=== PATIENT | male | born 1965 | race African-American/Black ===

== ENCOUNTER 2019-11-28 11:33 | Inpatient (IN) | payer OTHER ==
--- NOTE | 2019-11-28 11:52 | BHS.RME ---
Substance Use & Tx History - Substance Use History Alcohol Substance amount: 4 PINTS VODKA Frequency of use: Daily Substance route: Oral Date of Last Use: 11/28/19 Cocaine-Crack Substance amount: $70-80 Frequency of use: Daily Substance route: Smoking Date of Last Use: 11/26/19 Nicotine Substance amount: 1/2 PACK Frequency of use: Daily Substance route: Smoking Date of Last Use: 11/28/19 Physical/Psych/Mental Status - Behavior General Behavior: Increased activity (restlessness, agitation) Eye Contact: Normal - Cooperativeness Cooperativeness: Cooperative - Thinking Thought Processes: Tight, Logical, Goal Directed - Physical Health Problems Is patient presently having any pain?: No Does patient presently have any injuries (include location): No Does patient currently have a fever: No Is patient : No CIWA Nausea/Vomitin Muscle Tremors: 4-Moderate,w/Arms Extend Anxiety: 3 Agitation: 2 Paroxysmal Sweats: 5 Orientation: 0-Oriented Tacttile Disturbances: 0-None Auditory Disturbances: 0-None Visual Disturbances: 0-None Headache: 2-Mild CIWA-Ar Total Score: 19
[2019-11-28 14:41] VITALS: BMI 28.6
--- NOTE | 2019-11-28 15:33 | HP ---
CIWA Score Nausea/Vomitin Muscle Tremors: 4-Moderate,w/Arms Extend Anxiety: 3 Agitation: 2 Paroxysmal Sweats: 5 Orientation: 0-Oriented Tacttile Disturbances: 0-None Auditory Disturbances: 0-None Visual Disturbances: 0-None Headache: 2-Mild CIWA-Ar Total Score: 19 - Admission Criteria OASAS Guidelines: Admission for Medically Managed Detox: Requires at least one of the followin. CIWA greater than 12 2. Seizures within the past 24 hours 3. Delirium tremens within the past 24 hours 4. Hallucinations within the past 24 hours 5. Acute intervention needed for co occurring medical disorder 6. Acute intervention needed for co occurring psychiatric disorder 7. Severe withdrawal that cannot be handled at a lower level of care (continued vomiting, continued diarrhea, abnormal vital signs) requiring intravenous medication and/or fluids 8. Admitting History and Physical - Admission History of Present Illness: Patient presents to [facility] presenting for detox from alcohol PMH: HTN, was placed on amlodipine but not adherent PSH: Cholecystectomy 04/2019 PSYCH:None SOCIAL/DOMICILED: + Homesless-[address] Substance Use & Tx History - Substance Use History Alcohol Substance amount: 4 PINTS VODKA Frequency of use: Daily Substance route: Oral Date of Last Use: 11/28/19 First use: 11 yo Cocaine-Crack Substance amount: $70-80 Frequency of use: Daily Substance route: Smoking Date of Last Use: 11/26/19 First use: 27yo Nicotine Substance amount: 1/2 PACK Frequency of use: Daily Substance route: Smoking Date of Last Use: 11/28/19 First use: 11yo History Source: Patient Limitations to Obtaining History: No Limitations - Past Surgical History Past Surgical History: Yes: Cholecystectomy (Apr, 2019) - Smoking History Smoking history: Current every day smoker Have you smoked in the past 12 months: Yes Aproximately how many cigarettes per day: 10 - Alcohol/Substance Use Hx Alcohol Use: Yes Number of Drinks Daily: 4 (4 pints of vodka) Admission ROS [facility] - [facility] Allergies/Adverse Reactions: Allergies Allergy/AdvReac Type Severity Reaction Status Date / Time No Known Allergies Allergy Verified 07/17/19 19:27 Exam Limitations: No Limitations - Ebola screening Have you traveled outside of the country in the last 21 days: No Have you been sick,other than usual withdrawal symptoms: No Do you have a fever: No - Review of Systems Constitutional: No Symptoms Reported EENT: reports: No Symptoms Reported Respiratory: reports: No Symptoms reported Cardiac: reports: No Symptoms Reported GI: reports: No Symptoms Reported : reports: No Symptoms Reported Musculoskeletal: reports: Back Pain Integumentary: reports: No Symptoms Reported Neuro: reports: No Symptoms reported Endocrine: reports: No Symptoms Reported Hematology: reports: No Symptoms Reported Psychiatric: reports: Anxious Patient History - Patient Medical History Hx Asthma: No Hx Chronic Obstructive Pulmonary Disease (COPD): No Hx Cardiac Disorders: No Hx Hypertension: Yes Hx Seizures: No Hx Diabetes: No Hx Gastrointestinal Disorders: No Hx Genitourinary Disorders: No Hx Sexually Transmitted Disorders: No Hx Renal Disease (ESRD): No Hx Depression: No Hx Suicide Attempt: No Hx Schizophrenia: No - Patient Surgical History Past Surgical History: No Hx Cholecystectomy: Yes (removed in april 2019) Anesthesia Reaction: No - PPD History Previous Implant?: Yes Documented Results: Negative w/proof Implanted On Prior R Admission?: Yes Date: 07/19/19 Results: Negative - Smoking Cessation Smoking history: Current every day smoker Have you smoked in the past 12 months: Yes Aproximately how many cigarettes per day: 10 Cigars Per Day: 0 Hx Chewing Tobacco Use: No Initiated information on smoking cessation: Yes 'Breaking Loose' booklet given: 11/28/19 - Substances abused Crack Substance route: Smoking Frequency: 3-6 times per week Amount used: "$70-$80 worth" Age of first use: 27 Date of last use: 11/25/19 Alcohol Substance route: Oral Frequency: Daily Amount used: "4-5 pints a day" Age of first use: 11 Date of last use: 11/28/19 Admission Physical Exam BHS - Vital Signs Vital Signs: Vital Signs - 24 hr 11/28/19 14:34 Temperature 97.9 F Pulse Rate 93 H Respiratory 18 Rate Blood Pressure 127/82 - Physical General Appearance: Yes: Within Normal Limits, No Apparent Distress, Nourished, Appropriately Dressed, Other (Extremely tired and sleepy. Said he hasn't slept for 4 days now because he is homeless and don't have good space to sleep) HEENTM: Yes: Within Normal Limits, EOMI, Hearing grossly Normal, Normocephalic, Normal Voice, ELISEO Respiratory: Yes: Within Normal Limits, Chest Non-Tender, Lungs Clear, Normal Breath Sounds, No Respiratory Distress, No Accessory Muscle Use Neck: Yes: Within Normal Limits, No masses,lesions,Nodules Breast: Yes: Breast Exam Deferred Cardiology: Yes: Within Normal Limits, Regular Rhythm, Regular Rate, S1, S2 Abdominal: Yes: Within Normal Limits, Normal Bowel Sounds, Non Tender, Flat, Soft Genitourinary: Yes: Within Normal Limits Back: Yes: Within Normal Limits, Normal Inspection Musculoskeletal: Yes: Within Normal Limits Extremities: Yes: Within Normal Limits, Normal Capillary Refill, Normal Inspection, Normal Range of Motion, Non-Tender Neurological: Yes: Within Normal Limits, Fully Oriented, Alert Integumentary: Yes: Within Normal Limits, Normal Color - Diagnostic (1) Hypertension Current Visit: Yes Status: Chronic (2) Homeless Current Visit: Yes Status: Chronic (3) Cocaine abuse Current Visit: Yes Status: Acute (4) Alcohol abuse, episodic drinking behavior Current Visit: Yes Status: Acute (5) Nicotine dependence Current Visit: Yes Status: Acute Qualifiers: Nicotine product type: cigarettes Cleared for Admission [facility] - Detox or Rehab [facility] Level of Care: Medically Managed Screened but not Admitted - Documentation of Visit Screened but not Admitted: No Breathalyzer - Breathalyzer Breathalyzer: 0 Urine Drug Screen - Test Device Lot number: [id number] Expiration date: 01/07/21 - Control Is test valid?: Yes - Results Drug screen NEGATIVE: No Urine drug screen results: BRADLY-Cocaine, FEN-Fentanyl, BZO-Benzodiazepines Inpatient Rehab Admission - Rehab Decision to Admit Inpatient rehab admission?: No
[2019-11-28] MEDS ORDERED: chlordiazePOXIDE HCL 25 MG CAPSULE PO PRN (15:56)
[2019-11-28] MEDS ORDERED: MAGNESIUM HYDROX 2400MG/30ML ORAL SUSPENSION 30 ML CUP PO PRN (15:56)
[2019-11-28] MEDS ORDERED: MENTHOL/PHENOL 1 EACH UD MM PRN (15:56)
[2019-11-28] MEDS ORDERED: MAG HYDROX/AL HYDROX/SIMETH 30 ML UNIT-DOSE CUP PO PRN (15:56)
[2019-11-28] MEDS ORDERED: BISMUTH SUBSALICYLATE 524 MG/30 ML UD PO PRN (15:56)
[2019-11-28] MEDS ORDERED: METHOCARBAMOL 500 MG TABLET PO PRN (15:56)
[2019-11-28] MEDS ORDERED: ACETAMINOPHEN 325 MG TABLET (FP) PO PRN ×2 (15:56)
[2019-11-28] MEDS ORDERED: NICOTINE POLACRILEX 2 MG GUM BUC PRN (15:56)
[2019-11-28] MEDS ORDERED: IBUPROFEN 400 MG TABLET (FP) PO PRN (15:56)
[2019-11-28] MEDS ORDERED: MAGNESIUM CITRATE 300 ML BOTTLE PO PRN (15:56)
[2019-11-28] MEDS: ONDANSETRON *ODT* 4 MG TABLET SL SCH (18:02)
[2019-11-28] MEDS: chlordiazePOXIDE HCL 25 MG CAPSULE PO SCH ×2 (18:02→23:01)
[2019-11-28] MEDS: hydrOXYzine PAMOATE 25 MG CAPSULE (FP) PO SCH ×2 (18:02→23:01)
[2019-11-28] MEDS: NICOTINE 14 MG/24 HOURS TOPICAL PATCH TD SCH (18:02)
[2019-11-28] MEDS: PRENATAL VITAMINS W/ FOLIC ACID TABLET (FP) PO SCH (18:02)
[2019-11-28] MEDS: THIAMINE HCL 100 MG TABLET (FP) PO SCH (23:01)
[2019-11-28] MEDS: MELATONIN 5 MG TABLETS PO SCH (23:11)
[2019-11-29] MEDS: ONDANSETRON *ODT* 4 MG TABLET SL SCH ×4 (01:24→23:15)
[2019-11-29] MEDS: hydrOXYzine PAMOATE 25 MG CAPSULE (FP) PO SCH ×3 (06:32→14:55)
[2019-11-29] MEDS: chlordiazePOXIDE HCL 25 MG CAPSULE PO SCH ×4 (06:32→23:13)
--- NOTE | 2019-11-29 08:17 | PN ---
Teaching Attending Note Name of Resident: Yarelis Medrano ATTENDING PHYSICIAN STATEMENT I saw and evaluated the patient. I reviewed the resident's note and discussed the case with the resident. I agree with the resident's findings and plan as documented. SUBJECTIVE: I agree with resident's subjective findings OBJECTIVE: I agree with resident's objective findings. ASSESSMENT AND PLAN: Agree with plan for alcohol detox for this patient as per resident's orders.
[2019-11-29 09:55] LABS: HEMATOCRIT 37.4 % (35.4-49); MCH 26.8 pg (25.7-33.7); MCHC 32.1 g/dl (32.0-35.9); MEAN CELL VOLUME 83.3 fl (80-96); MEAN PLT VOLUME 10.6 fl (7.5-11.1); PLATELET COUNT 154 K/MM3 (134-434); RBC 4.49 M/mm3 (4.00-5.60); RDW 19.6 % (11.9-15.9); WHITE BLOOD COUNT 8.5 K/mm3 (4.0-10.0)
[2019-11-29 10:03] LABS: ALBUMIN 3.1 g/dl (3.4-5.0); BILIRUBIN,TOTAL 0.6 mg/dL (0.2-1); BLOOD UREA NITROGEN 17.3 mg/dL (7-18); CALCIUM 8.1 mg/dL (8.5-10.1); CREATININE 1.1 mg/dL (0.55-1.3); POTASSIUM 3.9 mmol/L (3.5-5.1)
[2019-11-29] MEDS: amLODIPine BESYLATE 5 MG TABLET (FP) PO SCH (11:20)
[2019-11-29] MEDS: PRENATAL VITAMINS W/ FOLIC ACID TABLET (FP) PO SCH (11:20)
[2019-11-29] MEDS: NICOTINE 14 MG/24 HOURS TOPICAL PATCH TD SCH (11:22)
--- NOTE | 2019-11-29 12:14 | PN ---
S CIWA - CIWA Score Nausea/Vomitin Muscle Tremors: 2 Anxiety: 2 Agitation: 2 Paroxysmal Sweats: No Perspiration Orientation: 0-Oriented Tacttile Disturbances: 1-Very Mild Itch/Numbness Auditory Disturbances: 0-None Visual Disturbances: 0-None Headache: 2-Mild CIWA-Ar Total Score: 11 S Progress Note (SOAP) Subjective: alert,irritable,anxious,interrupted sleep,tremor,pain in the body and back Objective: 11/29/19 12:13 Vital Signs Temperature 97.5 F L 11/29/19 08:49 Pulse Rate 81 11/29/19 08:49 Respiratory Rate 17 11/29/19 08:49 Blood Pressure 116/68 11/29/19 08:49 O2 Sat by Pulse Oximetry (%) 95 11/29/19 05:19 11/29/19 12:13 Laboratory Last Values WBC 8.5 K/mm3 (4.0-10.0) 11/29/19 07:45 RBC 4.49 M/mm3 (4.00-5.60) 11/29/19 07:45 Hgb 12.0 GM/dL (11.7-16.9) 11/29/19 07:45 Hct 37.4 % (35.4-49) 11/29/19 07:45 MCV 83.3 fl (80-96) 11/29/19 07:45 MCH 26.8 pg (25.7-33.7) 11/29/19 07:45 MCHC 32.1 g/dl (32.0-35.9) 11/29/19 07:45 RDW 19.6 % (11.9-15.9) H 11/29/19 07:45 Plt Count 154 K/MM3 (134-434) D 11/29/19 07:45 MPV 10.6 fl (7.5-11.1) 11/29/19 07:45 Sodium 139 mmol/L (136-145) 11/29/19 07:45 Potassium 3.9 mmol/L (3.5-5.1) 11/29/19 07:45 Chloride 106 mmol/L (98-107) 11/29/19 07:45 Carbon Dioxide 25 mmol/L (21-32) 11/29/19 07:45 Anion Gap 8 MMOL/L (8-16) 11/29/19 07:45 BUN 17.3 mg/dL (7-18) 11/29/19 07:45 Creatinine 1.1 mg/dL (0.55-1.3) 11/29/19 07:45 Est GFR (CKD-EPI)AfAm 87.74 11/29/19 07:45 Est GFR (CKD-EPI)NonAf 75.70 11/29/19 07:45 Random Glucose 105 mg/dL (74-106) 11/29/19 07:45 Calcium 8.1 mg/dL (8.5-10.1) L 11/29/19 07:45 Total Bilirubin 0.6 mg/dL (0.2-1) 11/29/19 07:45 AST 22 U/L (15-37) 11/29/19 07:45 ALT 30 U/L (13-61) 11/29/19 07:45 Alkaline Phosphatase 118 U/L (45-117) H 11/29/19 07:45 Total Protein 7.0 g/dl (6.4-8.2) 11/29/19 07:45 Albumin 3.1 g/dl (3.4-5.0) L 11/29/19 07:45 Syphilis Serology Non-reactive (NONREACTIVE) 11/29/19 07:45 HIV Ag/Ab Combo Qual Negative (NEGATIVE) 11/29/19 07:45 Assessment: 11/29/19 12:14 withdrawal symptom Plan: continue detox librium regimen,encourage oral fluid,close monitoring
--- NOTE | 2019-11-29 12:57 | EKG ---
Test Reason : Blood Pressure : / mmHG Vent. Rate : 077 BPM Atrial Rate : 077 BPM P-R Int : 168 ms QRS Dur : 106 ms QT Int : 394 ms P-R-T Axes : 053 024 040 degrees QTc Int : 445 ms NORMAL SINUS RHYTHM NORMAL ECG WHEN COMPARED WITH ECG OF 17-JUL-2019 19:16, NO SIGNIFICANT CHANGE WAS FOUND Confirmed by MD LOPEZ PENG ([id number]) on 11/29/2019 12:57:28 PM Referred By: Confirmed By:CATARINO LOPEZ MD
[2019-11-29] MEDS ORDERED: hydrOXYzine PAMOATE 25 MG CAPSULE (FP) PO PRN (15:43)
[2019-11-29] MEDS: THIAMINE HCL 100 MG TABLET (FP) PO SCH (23:13)
[2019-11-29] MEDS: MELATONIN 5 MG TABLETS PO SCH (23:13)
[2019-11-30] MEDS: chlordiazePOXIDE HCL 25 MG CAPSULE PO SCH ×4 (06:52→23:19)
[2019-11-30] MEDS: ONDANSETRON *ODT* 4 MG TABLET SL SCH ×3 (07:24→23:20)
--- NOTE | 2019-11-30 10:07 | PN ---
[facility] CIWA - CIWA Score Nausea/Vomitin-Mild Nausea/No Vomiting Muscle Tremors: 2 Anxiety: 2 Agitation: 2 Paroxysmal Sweats: No Perspiration Orientation: 0-Oriented Tacttile Disturbances: 1-Very Mild Itch/Numbness Auditory Disturbances: 0-None Visual Disturbances: 0-None Headache: 1-Very Mild CIWA-Ar Total Score: 9 S Progress Note (SOAP) Subjective: alert,irritable,anxious,interrupted sleep,tremor Objective: 11/30/19 10:06 Vital Signs Temperature 97.8 F 11/30/19 05:24 Pulse Rate 73 11/30/19 05:24 Respiratory Rate 16 11/30/19 05:24 Blood Pressure 128/82 11/30/19 05:24 O2 Sat by Pulse Oximetry (%) 95 11/30/19 05:24 Laboratory Last Values WBC 8.5 K/mm3 (4.0-10.0) 11/29/19 07:45 RBC 4.49 M/mm3 (4.00-5.60) 11/29/19 07:45 Hgb 12.0 GM/dL (11.7-16.9) 11/29/19 07:45 Hct 37.4 % (35.4-49) 11/29/19 07:45 MCV 83.3 fl (80-96) 11/29/19 07:45 MCH 26.8 pg (25.7-33.7) 11/29/19 07:45 MCHC 32.1 g/dl (32.0-35.9) 11/29/19 07:45 RDW 19.6 % (11.9-15.9) H 11/29/19 07:45 Plt Count 154 K/MM3 (134-434) D 11/29/19 07:45 MPV 10.6 fl (7.5-11.1) 11/29/19 07:45 Sodium 139 mmol/L (136-145) 11/29/19 07:45 Potassium 3.9 mmol/L (3.5-5.1) 11/29/19 07:45 Chloride 106 mmol/L (98-107) 11/29/19 07:45 Carbon Dioxide 25 mmol/L (21-32) 11/29/19 07:45 Anion Gap 8 MMOL/L (8-16) 11/29/19 07:45 BUN 17.3 mg/dL (7-18) 11/29/19 07:45 Creatinine 1.1 mg/dL (0.55-1.3) 11/29/19 07:45 Est GFR (CKD-EPI)AfAm 87.74 11/29/19 07:45 Est GFR (CKD-EPI)NonAf 75.70 11/29/19 07:45 Random Glucose 105 mg/dL (74-106) 11/29/19 07:45 Calcium 8.1 mg/dL (8.5-10.1) L 11/29/19 07:45 Total Bilirubin 0.6 mg/dL (0.2-1) 11/29/19 07:45 AST 22 U/L (15-37) 11/29/19 07:45 ALT 30 U/L (13-61) 11/29/19 07:45 Alkaline Phosphatase 118 U/L (45-117) H 11/29/19 07:45 Total Protein 7.0 g/dl (6.4-8.2) 11/29/19 07:45 Albumin 3.1 g/dl (3.4-5.0) L 11/29/19 07:45 Syphilis Serology Non-reactive (NONREACTIVE) 11/29/19 07:45 COVID-19 ([facility]) Not detected (Not Detected) 11/28/19 08:30 HIV Ag/Ab Combo Qual Negative (NEGATIVE) 11/29/19 07:45 Assessment: 11/30/19 10:06 withdrawal symptom Plan: continue detox librium regimen,encourage oral fluid
[2019-11-30] MEDS: amLODIPine BESYLATE 5 MG TABLET (FP) PO SCH (10:59)
[2019-11-30] MEDS: NICOTINE 14 MG/24 HOURS TOPICAL PATCH TD SCH (10:59)
[2019-11-30] MEDS: PRENATAL VITAMINS W/ FOLIC ACID TABLET (FP) PO SCH (10:59)
[2019-11-30] MEDS: MELATONIN 5 MG TABLETS PO SCH (23:19)
[2019-11-30] MEDS: THIAMINE HCL 100 MG TABLET (FP) PO SCH (23:19)
[2019-12-01] MEDS ORDERED: chlordiazePOXIDE HCL 10 MG CAPSULE PO PRN
[2019-12-01] MEDS: chlordiazePOXIDE HCL 10 MG CAPSULE PO SCH ×3 (06:52→17:45)
[2019-12-01] MEDS: ONDANSETRON *ODT* 4 MG TABLET SL SCH ×2 (07:04→17:45)
--- NOTE | 2019-12-01 10:34 | PN ---
[facility] CIWA - CIWA Score Nausea/Vomitin-No Nausea/No Vomiting Muscle Tremors: 1-None Visible, but [place] Anxiety: 2 Agitation: 2 Paroxysmal Sweats: No Perspiration Orientation: 0-Oriented Tacttile Disturbances: 1-Very Mild Itch/Numbness Auditory Disturbances: 0-None Visual Disturbances: 0-None Headache: 1-Very Mild CIWA-Ar Total Score: 7 BHS Progress Note (SOAP) Subjective: alert,irritable,anxious,interrupted sleep Objective: 12/01/19 10:33 Vital Signs Temperature 97.1 F L 11/30/19 20:38 Pulse Rate 72 11/30/19 20:38 Respiratory Rate 18 11/30/19 20:38 Blood Pressure 113/83 11/30/19 20:38 O2 Sat by Pulse Oximetry (%) 98 11/30/19 22:21 Assessment: 12/01/19 10:34 withdrawal symptom Plan: continue detox librium regimen
[2019-12-01] MEDS: NICOTINE 14 MG/24 HOURS TOPICAL PATCH TD SCH (11:57)
[2019-12-01] MEDS: amLODIPine BESYLATE 5 MG TABLET (FP) PO SCH (11:57)
[2019-12-01] MEDS: PRENATAL VITAMINS W/ FOLIC ACID TABLET (FP) PO SCH (11:57)
[2019-12-01 17:27] VITALS: BP 146/78; PULSE 68; TEMP 97.3
--- NOTE | 2019-12-01 18:31 | DS ---
[facility] Detox Discharge Summary Admission Date: 11/28/19 Discharge Date: 12/01/19 - History Present History: Alcohol Dependence, Cocaine Dependence Additional Comments: Pt seen and examined, alert and oriented x3. In no acute respiratory distress.Ambulatory without assistance, full ROM. Wants to leave because he has stuff to do before going to rehab on Wednesday. Pertinent Past History: History of Hypertension, S/P Cholecystectomy (2019), alcohol, Crack/Cocaine and Nicotine use disorder. - Physical Exam Results Vital Signs: Vital Signs Temperature 97.3 F L 12/01/19 17:26 Pulse Rate 68 12/01/19 17:26 Respiratory Rate 18 12/01/19 17:26 Blood Pressure 146/78 12/01/19 17:26 O2 Sat by Pulse Oximetry (%) 100 12/01/19 14:20 Vital Signs 12/01/19 12/01/19 14:20 17:26 Temperature 98.2 F 97.3 F L Pulse Rate 73 68 Respiratory 17 18 Rate Blood Pressure 128/89 146/78 O2 Sat by Pulse 100 Oximetry (%) Laboratory Last Values WBC 8.5 K/mm3 (4.0-10.0) 11/29/19 07:45 RBC 4.49 M/mm3 (4.00-5.60) 11/29/19 07:45 Hgb 12.0 GM/dL (11.7-16.9) 11/29/19 07:45 Hct 37.4 % (35.4-49) 11/29/19 07:45 MCV 83.3 fl (80-96) 11/29/19 07:45 MCH 26.8 pg (25.7-33.7) 11/29/19 07:45 MCHC 32.1 g/dl (32.0-35.9) 11/29/19 07:45 RDW 19.6 % (11.9-15.9) H 11/29/19 07:45 Plt Count 154 K/MM3 (134-434) D 11/29/19 07:45 MPV 10.6 fl (7.5-11.1) 11/29/19 07:45 Sodium 139 mmol/L (136-145) 11/29/19 07:45 Potassium 3.9 mmol/L (3.5-5.1) 11/29/19 07:45 Chloride 106 mmol/L (98-107) 11/29/19 07:45 Carbon Dioxide 25 mmol/L (21-32) 11/29/19 07:45 Anion Gap 8 MMOL/L (8-16) 11/29/19 07:45 BUN 17.3 mg/dL (7-18) 11/29/19 07:45 Creatinine 1.1 mg/dL (0.55-1.3) 11/29/19 07:45 Est GFR (CKD-EPI)AfAm 87.74 11/29/19 07:45 Est GFR (CKD-EPI)NonAf 75.70 11/29/19 07:45 Random Glucose 105 mg/dL (74-106) 11/29/19 07:45 Calcium 8.1 mg/dL (8.5-10.1) L 11/29/19 07:45 Total Bilirubin 0.6 mg/dL (0.2-1) 11/29/19 07:45 AST 22 U/L (15-37) 11/29/19 07:45 ALT 30 U/L (13-61) 11/29/19 07:45 Alkaline Phosphatase 118 U/L (45-117) H 11/29/19 07:45 Total Protein 7.0 g/dl (6.4-8.2) 11/29/19 07:45 Albumin 3.1 g/dl (3.4-5.0) L 11/29/19 07:45 Syphilis Serology Non-reactive (NONREACTIVE) 11/29/19 07:45 COVID-19 ([facility]) Not detected (Not Detected) 11/28/19 08:30 HIV Ag/Ab Combo Qual Negative (NEGATIVE) 11/29/19 07:45 Labs reviewed. Pertinent Admission Physical Exam Findings: Withdrawal symptoms. - Medication Discharge Medications: Ambulatory Orders Amlodipine Besylate [Norvasc -] 5 mg PO DAILY 11/28/19 - Diagnosis (1) Alcohol abuse, episodic drinking behavior Current Visit: Yes Status: Acute (2) Cocaine abuse Current Visit: Yes Status: Chronic (3) Nicotine dependence Current Visit: Yes Status: Chronic Qualifiers: Nicotine product type: cigarettes (4) Homeless Current Visit: Yes Status: Chronic (5) Hypertension Current Visit: Yes Status: Chronic - AMA Did Patient Leave Against Medical Advice: Yes
[2019-12-02] MEDS ORDERED: chlordiazePOXIDE HCL 10 MG CAPSULE PO SCH (05:00)
[2019-12-03] MEDS ORDERED: chlordiazePOXIDE HCL 10 MG CAPSULE PO ONE (05:00)
== END 2019-12-01 17:45 | disposition left against medical advice (07) | DRG 770 ==
LOC: YASAS 11:33 → Y6N 15:58
PROVIDERS: ADMIT Allergy & Immunology; ATTEND Allergy & Immunology
PROC: HZ2ZZZZ Detoxification Services for Substance Abuse Treatment (ICD-10-PCS; principal; 2019-11-28)
DX: F10.230 Alcohol dependence with withdrawal, uncomplicated (principal); F14.20 Cocaine dependence, uncomplicated; F17.210 Nicotine dependence, cigarettes, uncomplicated; I10 Essential (primary) hypertension; Z90.49 Acquired absence of other specified parts of digestive tract; Z91.14 Patient's other noncompliance with medication regimen; Z59.0 Homelessness
CPT/HCPCS: 36415; 80053; 85027; 86780; 87389; 93005; 93010; Q0162; U0003

== ENCOUNTER 2020-06-26 14:28 | Inpatient (IN) | payer OTHER ==
[2020-06-26 16:27] VITALS: BMI 28.9
[2020-06-26] MEDS ORDERED: MAGNESIUM HYDROX 2400MG/30ML ORAL SUSPENSION 30 ML CUP PO PRN (16:44)
[2020-06-26] MEDS ORDERED: MENTHOL/PHENOL 1 EACH UD MM PRN (16:44)
[2020-06-26] MEDS ORDERED: ACETAMINOPHEN 325 MG TABLET (FP) PO PRN ×2 (16:44)
[2020-06-26] MEDS ORDERED: ONDANSETRON *ODT* 4 MG TABLET SL PRN (16:44)
[2020-06-26] MEDS ORDERED: IBUPROFEN 400 MG TABLET (FP) PO PRN (16:44)
[2020-06-26] MEDS ORDERED: NICOTINE POLACRILEX 2 MG GUM BUC PRN (16:44)
[2020-06-26] MEDS ORDERED: MAGNESIUM CITRATE 300 ML BOTTLE PO PRN (16:44)
[2020-06-26] MEDS ORDERED: chlordiazePOXIDE HCL 25 MG CAPSULE PO PRN (16:44)
[2020-06-26] MEDS ORDERED: METHOCARBAMOL 500 MG TABLET PO PRN (16:44)
[2020-06-26] MEDS ORDERED: BISMUTH SUBSALICYLATE 524 MG/30 ML UD PO PRN (16:44)
[2020-06-26] MEDS: MAG HYDROX/AL HYDROX/SIMETH 30 ML UNIT-DOSE CUP PO PRN (18:55)
[2020-06-26] MEDS: chlordiazePOXIDE HCL 25 MG CAPSULE PO SCH (18:57)
[2020-06-26] MEDS: hydrOXYzine PAMOATE 25 MG CAPSULE (FP) PO SCH ×2 (18:57→23:57)
[2020-06-26] MEDS: THIAMINE HCL 100 MG TABLET (FP) PO SCH (23:57)
[2020-06-26] MEDS: MELATONIN 5 MG TABLETS PO SCH (23:57)
[2020-06-27] MEDS: chlordiazePOXIDE HCL 25 MG CAPSULE PO SCH ×5 (00:11→22:31)
[2020-06-27] MEDS: hydrOXYzine PAMOATE 25 MG CAPSULE (FP) PO SCH ×5 (05:29→22:31)
[2020-06-27 09:48] LABS: POTASSIUM 4.4 mmol/L (3.5-5.1)
[2020-06-27 09:50] LABS: HEMATOCRIT 44.3 % (35.4-49); HEMOGLOBIN 14.8 GM/dL (11.7-16.9); MCH 29.3 pg (25.7-33.7); MCHC 33.4 g/dl (32.0-35.9); MEAN CELL VOLUME 87.7 fl (80-96); MEAN PLT VOLUME 10.2 fl (7.5-11.1); PLATELET COUNT 257 K/MM3 (134-434); RBC 5.05 M/mm3 (4.00-5.60); RDW 16.6 % (11.9-15.9); WHITE BLOOD COUNT 9.5 K/mm3 (4.0-10.0)
[2020-06-27] MEDS: PRENATAL VITAMINS W/ FOLIC ACID TABLET (FP) PO SCH (10:08)
[2020-06-27] MEDS: amLODIPine BESYLATE 5 MG TABLET (FP) PO SCH (10:08)
[2020-06-27 10:31] LABS: ALBUMIN 3.7 g/dl (3.4-5.0); BLOOD UREA NITROGEN 14.5 mg/dL (7-18); CALCIUM 9.3 mg/dL (8.5-10.1)
[2020-06-27 10:36] LABS: BILIRUBIN,TOTAL 0.5 mg/dL (0.2-1); CREATININE 1.1 mg/dL (0.55-1.3); TOT PROT 7.9 g/dl (6.4-8.2)
[2020-06-27] MEDS: THIAMINE HCL 100 MG TABLET (FP) PO SCH (22:30)
[2020-06-27] MEDS: MELATONIN 5 MG TABLETS PO SCH (22:30)
[2020-06-27] MEDS: MAG HYDROX/AL HYDROX/SIMETH 30 ML UNIT-DOSE CUP PO PRN (22:31)
[2020-06-28] MEDS: hydrOXYzine PAMOATE 25 MG CAPSULE (FP) PO SCH ×5 (05:42→23:56)
[2020-06-28] MEDS: chlordiazePOXIDE HCL 25 MG CAPSULE PO SCH ×4 (05:42→23:57)
[2020-06-28] MEDS: MAG HYDROX/AL HYDROX/SIMETH 30 ML UNIT-DOSE CUP PO PRN (05:44)
[2020-06-28] MEDS: amLODIPine BESYLATE 5 MG TABLET (FP) PO SCH (10:30)
[2020-06-28] MEDS: PRENATAL VITAMINS W/ FOLIC ACID TABLET (FP) PO SCH (10:30)
[2020-06-28] MEDS: MELATONIN 5 MG TABLETS PO SCH (23:56)
[2020-06-28] MEDS: THIAMINE HCL 100 MG TABLET (FP) PO SCH (23:57)
[2020-06-29] MEDS ORDERED: chlordiazePOXIDE HCL 10 MG CAPSULE PO PRN
[2020-06-29] MEDS ORDERED: chlordiazePOXIDE HCL 10 MG CAPSULE PO SCH (05:00)
[2020-06-29] MEDS: hydrOXYzine PAMOATE 25 MG CAPSULE (FP) PO SCH (05:52)
[2020-06-29 07:34] VITALS: BP 108/73; PULSE 62; TEMP 98
[2020-06-30] MEDS ORDERED: chlordiazePOXIDE HCL 10 MG CAPSULE PO SCH (05:00)
[2020-07-01] MEDS ORDERED: chlordiazePOXIDE HCL 10 MG CAPSULE PO ONE (05:00)
== END 2020-06-29 07:46 | disposition left against medical advice (07) | DRG 770 ==
LOC: YASAS 14:28 → Y6N 17:10
PROVIDERS: ADMIT Allergy & Immunology; ATTEND Allergy & Immunology
PROC: HZ2ZZZZ Detoxification Services for Substance Abuse Treatment (ICD-10-PCS; principal; 2020-06-26)
DX: F10.230 Alcohol dependence with withdrawal, uncomplicated (principal); F14.10 Cocaine abuse, uncomplicated; F17.210 Nicotine dependence, cigarettes, uncomplicated; I10 Essential (primary) hypertension; R73.9 Hyperglycemia, unspecified; Z90.49 Acquired absence of other specified parts of digestive tract
CPT/HCPCS: 36415; 80053; 85027; 86780; C9803; U0003

== ENCOUNTER 2022-01-09 15:11 | Inpatient (IN) | payer OTHER ==
[2022-01-09 16:23] VITALS: BMI 31.0
[2022-01-09] MEDS ORDERED: ONDANSETRON *ODT* 4 MG TABLET SL PRN (16:50)
[2022-01-09] MEDS ORDERED: MAG HYDROX/AL HYDROX/SIMETH 30 ML UNIT-DOSE CUP PO PRN (16:50)
[2022-01-09] MEDS ORDERED: BENZOCAINE/MENTHOL (CHLORASEPTIC ) LOZENGE MM PRN (16:50)
[2022-01-09] MEDS ORDERED: MAGNESIUM CITRATE 300 ML BOTTLE PO PRN (16:50)
[2022-01-09] MEDS ORDERED: chlordiazePOXIDE HCL 25 MG CAPSULE PO PRN (16:50)
[2022-01-09] MEDS ORDERED: LOPERAMIDE HCL 2 MG CAPSULE PO PRN (16:50)
[2022-01-09] MEDS ORDERED: BISMUTH SUBSALICYLATE 524 MG/30 ML PO PRN (16:50)
[2022-01-09] MEDS ORDERED: DICYCLOMINE HCL 10 MG CAPSULE PO PRN (16:50)
[2022-01-09] MEDS ORDERED: IBUPROFEN 400 MG TABLET (FP) PO PRN (16:50)
[2022-01-09] MEDS ORDERED: ACETAMINOPHEN 325 MG TABLET (FP) PO PRN ×2 (16:50)
[2022-01-09] MEDS ORDERED: METHOCARBAMOL 500 MG TABLET PO PRN (16:50)
[2022-01-09] MEDS ORDERED: NICOTINE 10 MG CARTRIDGE (INHALER) IH PRN (16:50)
[2022-01-09] MEDS ORDERED: MAGNESIUM HYDROX 2400MG/30ML ORAL SUSPENSION 30 ML CUP PO PRN (16:50)
[2022-01-09] MEDS ORDERED: IBUPROFEN 600 MG TABLET (FP) PO PRN (16:50)
[2022-01-09] MEDS: hydrOXYzine PAMOATE 25 MG CAPSULE (FP) PO SCH ×2 (18:27→22:26)
[2022-01-09] MEDS: chlordiazePOXIDE HCL 25 MG CAPSULE PO SCH ×2 (18:27→22:26)
[2022-01-09] MEDS: THIAMINE HCL 100 MG TABLET (FP) PO SCH (22:26)
[2022-01-09] MEDS: MELATONIN 5 MG TABLETS PO SCH (22:26)
[2022-01-10] MEDS: chlordiazePOXIDE HCL 25 MG CAPSULE PO SCH ×4 (06:38→22:53)
[2022-01-10] MEDS: hydrOXYzine PAMOATE 25 MG CAPSULE (FP) PO SCH ×5 (06:38→22:53)
[2022-01-10] MEDS: PRENATAL VITAMINS W/ FOLIC ACID TABLET (FP) PO SCH (10:38)
[2022-01-10] MEDS: NICOTINE 7 MG/24 HOURS TOPICAL PATCH TD SCH (10:40)
[2022-01-10 15:45] LABS: HEMATOCRIT 43.7 % (35.4-49); HEMOGLOBIN 14.2 GM/dL (11.7-16.9); MCH 28.3 pg (25.7-33.7); MCHC 32.6 g/dl (32.0-35.9); MEAN CELL VOLUME 86.9 fl (80-96); MEAN PLT VOLUME 10.6 fl (7.5-11.1); PLATELET COUNT 202 10^3/uL (134-434); RBC 5.03 M/mm3 (4.00-5.60); RDW 15.8 % (11.9-15.9); WHITE BLOOD COUNT 5.8 K/mm3 (4.0-10.0)
[2022-01-10 15:46] LABS: CALCIUM 8.6 mg/dL (8.5-10.1)
[2022-01-10 15:47] LABS: ALBUMIN 3.2 g/dl (3.4-5.0); BLOOD UREA NITROGEN 12.5 mg/dL (7-18)
[2022-01-10 15:50] LABS: CREATININE 0.9 mg/dL (0.55-1.3)
[2022-01-10 15:51] LABS: BILIRUBIN,TOTAL 0.6 mg/dL (0.2-1); TOT PROT 6.9 g/dl (6.4-8.2)
[2022-01-10] MEDS: MELATONIN 5 MG TABLETS PO SCH (22:53)
[2022-01-10] MEDS: THIAMINE HCL 100 MG TABLET (FP) PO SCH (22:53)
[2022-01-11] MEDS: hydrOXYzine PAMOATE 25 MG CAPSULE (FP) PO SCH ×5 (06:32→22:55)
[2022-01-11] MEDS: chlordiazePOXIDE HCL 25 MG CAPSULE PO SCH ×4 (06:32→22:55)
[2022-01-11] MEDS: PRENATAL VITAMINS W/ FOLIC ACID TABLET (FP) PO SCH (10:24)
[2022-01-11] MEDS: NICOTINE 7 MG/24 HOURS TOPICAL PATCH TD SCH (10:26)
[2022-01-11] MEDS: MELATONIN 5 MG TABLETS PO SCH (22:55)
[2022-01-11] MEDS: THIAMINE HCL 100 MG TABLET (FP) PO SCH (22:55)
[2022-01-12] MEDS ORDERED: chlordiazePOXIDE HCL 10 MG CAPSULE PO PRN
[2022-01-12] MEDS: chlordiazePOXIDE HCL 10 MG CAPSULE PO SCH ×4 (06:12→22:52)
[2022-01-12] MEDS: hydrOXYzine PAMOATE 25 MG CAPSULE (FP) PO SCH ×5 (06:13→22:52)
[2022-01-12] MEDS: PRENATAL VITAMINS W/ FOLIC ACID TABLET (FP) PO SCH (10:28)
[2022-01-12] MEDS: NICOTINE 7 MG/24 HOURS TOPICAL PATCH TD SCH (10:30)
[2022-01-12 21:45] VITALS: RESP 18
[2022-01-12] MEDS: MELATONIN 5 MG TABLETS PO SCH (22:52)
[2022-01-12] MEDS: THIAMINE HCL 100 MG TABLET (FP) PO SCH (22:52)
[2022-01-13] MEDS: chlordiazePOXIDE HCL 10 MG CAPSULE PO SCH ×2 (06:56→17:24)
[2022-01-13] MEDS: hydrOXYzine PAMOATE 25 MG CAPSULE (FP) PO SCH ×5 (06:56→22:41)
[2022-01-13] MEDS: PRENATAL VITAMINS W/ FOLIC ACID TABLET (FP) PO SCH (10:22)
[2022-01-13] MEDS: NICOTINE 7 MG/24 HOURS TOPICAL PATCH TD SCH (10:23)
[2022-01-13] MEDS: MELATONIN 5 MG TABLETS PO SCH (22:41)
[2022-01-13] MEDS: THIAMINE HCL 100 MG TABLET (FP) PO SCH (22:42)
[2022-01-14] MEDS ORDERED: chlordiazePOXIDE HCL 10 MG CAPSULE PO ONE (05:00)
[2022-01-14] MEDS: hydrOXYzine PAMOATE 25 MG CAPSULE (FP) PO SCH ×2 (06:18→10:42)
[2022-01-14 09:21] VITALS: BP 148/92; PULSE 78; TEMP 97.1
[2022-01-14] MEDS: NICOTINE 7 MG/24 HOURS TOPICAL PATCH TD SCH (10:42)
[2022-01-14] MEDS: PRENATAL VITAMINS W/ FOLIC ACID TABLET (FP) PO SCH (10:42)
== END 2022-01-14 12:08 | disposition home or self-care (01) | DRG 774 ==
LOC: YASAS 15:11 → Y3N 17:31
PROVIDERS: ADMIT Allergy & Immunology; ATTEND Surgery
PROC: HZ2ZZZZ Detoxification Services for Substance Abuse Treatment (ICD-10-PCS; principal; 2022-01-09)
DX: F10.230 Alcohol dependence with withdrawal, uncomplicated (principal); F14.20 Cocaine dependence, uncomplicated; F17.210 Nicotine dependence, cigarettes, uncomplicated; I10 Essential (primary) hypertension; Z59.00 Homelessness unspecified
CPT/HCPCS: 36415; 80053; 85027; 86780; C9803-CS; U0003; U0005

== ENCOUNTER 2022-01-14 12:16 | Inpatient (IN) | payer OTHER ==
[2022-01-14] MEDS ORDERED: BENZOCAINE/MENTHOL (CHLORASEPTIC ) LOZENGE MM PRN (14:49)
[2022-01-14] MEDS ORDERED: IBUPROFEN 400 MG TABLET (FP) PO PRN (14:49)
[2022-01-14] MEDS ORDERED: ACETAMINOPHEN 325 MG TABLET (FP) PO PRN (14:49)
[2022-01-14] MEDS ORDERED: MAGNESIUM CITRATE 300 ML BOTTLE PO PRN (14:49)
[2022-01-14] MEDS ORDERED: guaiFENesin 200 MG/10 ML 10 ML UNIT-DOSE CUPS PO PRN (14:49)
[2022-01-14] MEDS ORDERED: MAG HYDROX/AL HYDROX/SIMETH 30 ML UNIT-DOSE CUP PO PRN (14:49)
[2022-01-14] MEDS ORDERED: MAGNESIUM HYDROX 2400MG/30ML ORAL SUSPENSION 30 ML CUP PO PRN (14:49)
[2022-01-14] MEDS ORDERED: P-EPHED 60MG/TRIPROLIDI 2.5MG TABLET PO PRN (14:49)
[2022-01-14] MEDS ORDERED: LOPERAMIDE HCL 2 MG CAPSULE PO PRN (14:49)
[2022-01-14] MEDS: THIAMINE HCL 100 MG TABLET (FP) PO SCH (21:38)
[2022-01-14] MEDS: ATORVASTATIN CA 10 MG TABLET (FP) PO SCH (21:38)
[2022-01-14] MEDS: MELATONIN 5 MG TABLETS PO SCH (21:38)
[2022-01-14] MEDS: RIVAROXABAN 20 MG TABLET PO SCH (21:39)
[2022-01-15] MEDS: NICOTINE 10 MG CARTRIDGE (INHALER) IH PRN (10:23)
[2022-01-15] MEDS: PRENATAL VITAMINS W/ FOLIC ACID TABLET (FP) PO SCH (10:23)
[2022-01-15] MEDS: TAMSULOSIN HCL 0.4 MG CAP PO SCH (10:23)
[2022-01-15] MEDS: amLODIPine BESYLATE 10 MG TABLET (FP) PO SCH (10:23)
[2022-01-15] MEDS: NICOTINE 7 MG/24 HOURS TOPICAL PATCH TD SCH (10:24)
[2022-01-15] MEDS: RIVAROXABAN 20 MG TABLET PO SCH (18:42)
[2022-01-15] MEDS: THIAMINE HCL 100 MG TABLET (FP) PO SCH (21:05)
[2022-01-15] MEDS: MELATONIN 5 MG TABLETS PO SCH (21:05)
[2022-01-15] MEDS: ATORVASTATIN CA 10 MG TABLET (FP) PO SCH (21:05)
[2022-01-16] MEDS: TAMSULOSIN HCL 0.4 MG CAP PO SCH (09:30)
[2022-01-16] MEDS: amLODIPine BESYLATE 10 MG TABLET (FP) PO SCH (10:45)
[2022-01-16] MEDS: NICOTINE 7 MG/24 HOURS TOPICAL PATCH TD SCH (10:45)
[2022-01-16] MEDS: PRENATAL VITAMINS W/ FOLIC ACID TABLET (FP) PO SCH (10:45)
[2022-01-16] MEDS: NICOTINE 10 MG CARTRIDGE (INHALER) IH PRN (10:46)
[2022-01-16] MEDS: RIVAROXABAN 20 MG TABLET PO SCH (17:50)
[2022-01-16] MEDS: MELATONIN 5 MG TABLETS PO SCH (21:48)
[2022-01-16] MEDS: THIAMINE HCL 100 MG TABLET (FP) PO SCH (21:48)
[2022-01-16] MEDS: ATORVASTATIN CA 10 MG TABLET (FP) PO SCH (21:48)
[2022-01-16] MEDS: hydrOXYzine PAMOATE 25 MG CAPSULE (FP) PO PRN (23:57)
[2022-01-17] MEDS: amLODIPine BESYLATE 10 MG TABLET (FP) PO SCH (10:00)
[2022-01-17] MEDS: NICOTINE 10 MG CARTRIDGE (INHALER) IH PRN (10:00)
[2022-01-17] MEDS: TAMSULOSIN HCL 0.4 MG CAP PO SCH (10:01)
[2022-01-17] MEDS: NICOTINE 7 MG/24 HOURS TOPICAL PATCH TD SCH (10:01)
[2022-01-17] MEDS: PRENATAL VITAMINS W/ FOLIC ACID TABLET (FP) PO SCH (10:01)
[2022-01-17] MEDS: RIVAROXABAN 20 MG TABLET PO SCH (18:05)
[2022-01-17] MEDS: THIAMINE HCL 100 MG TABLET (FP) PO SCH (21:43)
[2022-01-17] MEDS: MELATONIN 5 MG TABLETS PO SCH (21:43)
[2022-01-17] MEDS: ATORVASTATIN CA 10 MG TABLET (FP) PO SCH (21:44)
[2022-01-18] MEDS: NICOTINE 7 MG/24 HOURS TOPICAL PATCH TD SCH (10:18)
[2022-01-18] MEDS: NICOTINE 10 MG CARTRIDGE (INHALER) IH PRN (10:18)
[2022-01-18] MEDS: amLODIPine BESYLATE 10 MG TABLET (FP) PO SCH (10:18)
[2022-01-18] MEDS: PRENATAL VITAMINS W/ FOLIC ACID TABLET (FP) PO SCH (10:18)
[2022-01-18] MEDS: TAMSULOSIN HCL 0.4 MG CAP PO SCH (10:18)
[2022-01-18] MEDS: RIVAROXABAN 20 MG TABLET PO SCH (17:51)
[2022-01-18] MEDS: MELATONIN 5 MG TABLETS PO SCH (21:30)
[2022-01-18] MEDS: THIAMINE HCL 100 MG TABLET (FP) PO SCH (21:30)
[2022-01-18] MEDS: ATORVASTATIN CA 10 MG TABLET (FP) PO SCH (21:30)
[2022-01-19] MEDS: amLODIPine BESYLATE 10 MG TABLET (FP) PO SCH (09:59)
[2022-01-19] MEDS: PRENATAL VITAMINS W/ FOLIC ACID TABLET (FP) PO SCH (09:59)
[2022-01-19] MEDS: NICOTINE 7 MG/24 HOURS TOPICAL PATCH TD SCH (10:00)
[2022-01-19] MEDS: TAMSULOSIN HCL 0.4 MG CAP PO SCH (10:00)
[2022-01-19] MEDS: NICOTINE 10 MG CARTRIDGE (INHALER) IH PRN (10:00)
[2022-01-19] MEDS: RIVAROXABAN 20 MG TABLET PO SCH (18:58)
[2022-01-19] MEDS: MELATONIN 5 MG TABLETS PO SCH (21:05)
[2022-01-19] MEDS: ATORVASTATIN CA 10 MG TABLET (FP) PO SCH (21:05)
[2022-01-19] MEDS: THIAMINE HCL 100 MG TABLET (FP) PO SCH (21:05)
[2022-01-20] MEDS: NICOTINE 10 MG CARTRIDGE (INHALER) IH PRN (10:28)
[2022-01-20] MEDS: PRENATAL VITAMINS W/ FOLIC ACID TABLET (FP) PO SCH (10:28)
[2022-01-20] MEDS: NICOTINE 7 MG/24 HOURS TOPICAL PATCH TD SCH (10:28)
[2022-01-20] MEDS: amLODIPine BESYLATE 10 MG TABLET (FP) PO SCH (10:29)
[2022-01-20] MEDS: TAMSULOSIN HCL 0.4 MG CAP PO SCH (10:29)
[2022-01-20] MEDS: NALTREXONE HCL 50 MG TABLET PO SCH (12:46)
[2022-01-20] MEDS: RIVAROXABAN 20 MG TABLET PO SCH (18:31)
[2022-01-20] MEDS: MELATONIN 5 MG TABLETS PO SCH (21:19)
[2022-01-20] MEDS: THIAMINE HCL 100 MG TABLET (FP) PO SCH (21:19)
[2022-01-20] MEDS: ATORVASTATIN CA 10 MG TABLET (FP) PO SCH (21:19)
[2022-01-20] MEDS: hydrOXYzine PAMOATE 25 MG CAPSULE (FP) PO PRN (21:19)
[2022-01-21] MEDS: TAMSULOSIN HCL 0.4 MG CAP PO SCH (09:52)
[2022-01-21] MEDS: NICOTINE 10 MG CARTRIDGE (INHALER) IH PRN (09:52)
[2022-01-21] MEDS: NICOTINE 7 MG/24 HOURS TOPICAL PATCH TD SCH (09:52)
[2022-01-21] MEDS: NALTREXONE HCL 50 MG TABLET PO SCH (09:52)
[2022-01-21] MEDS: PRENATAL VITAMINS W/ FOLIC ACID TABLET (FP) PO SCH (09:52)
[2022-01-21] MEDS: amLODIPine BESYLATE 10 MG TABLET (FP) PO SCH (09:52)
[2022-01-21] MEDS: RIVAROXABAN 20 MG TABLET PO SCH (18:18)
[2022-01-21] MEDS: MELATONIN 5 MG TABLETS PO SCH (21:12)
[2022-01-21] MEDS: ATORVASTATIN CA 10 MG TABLET (FP) PO SCH (21:12)
[2022-01-21] MEDS: THIAMINE HCL 100 MG TABLET (FP) PO SCH (21:12)
[2022-01-21] MEDS: hydrOXYzine PAMOATE 25 MG CAPSULE (FP) PO PRN (21:13)
[2022-01-22] MEDS: NICOTINE 10 MG CARTRIDGE (INHALER) IH PRN (10:11)
[2022-01-22] MEDS: amLODIPine BESYLATE 10 MG TABLET (FP) PO SCH (10:11)
[2022-01-22] MEDS: PRENATAL VITAMINS W/ FOLIC ACID TABLET (FP) PO SCH (10:12)
[2022-01-22] MEDS: NALTREXONE HCL 50 MG TABLET PO SCH (10:12)
[2022-01-22] MEDS: NICOTINE 7 MG/24 HOURS TOPICAL PATCH TD SCH (10:12)
[2022-01-22] MEDS: TAMSULOSIN HCL 0.4 MG CAP PO SCH (10:12)
[2022-01-22] MEDS: RIVAROXABAN 20 MG TABLET PO SCH (18:08)
[2022-01-22] MEDS: THIAMINE HCL 100 MG TABLET (FP) PO SCH (21:18)
[2022-01-22] MEDS: MELATONIN 5 MG TABLETS PO SCH (21:18)
[2022-01-22] MEDS: ATORVASTATIN CA 10 MG TABLET (FP) PO SCH (21:19)
[2022-01-23] MEDS: TAMSULOSIN HCL 0.4 MG CAP PO SCH (09:01)
[2022-01-23] MEDS: PRENATAL VITAMINS W/ FOLIC ACID TABLET (FP) PO SCH (10:18)
[2022-01-23] MEDS: NALTREXONE HCL 50 MG TABLET PO SCH (10:18)
[2022-01-23] MEDS: amLODIPine BESYLATE 10 MG TABLET (FP) PO SCH (10:18)
[2022-01-23] MEDS: NICOTINE 10 MG CARTRIDGE (INHALER) IH PRN (10:18)
[2022-01-23] MEDS: NICOTINE 7 MG/24 HOURS TOPICAL PATCH TD SCH (10:18)
[2022-01-23] MEDS: RIVAROXABAN 20 MG TABLET PO SCH (17:33)
[2022-01-23] MEDS: MELATONIN 5 MG TABLETS PO SCH (21:32)
[2022-01-23] MEDS: THIAMINE HCL 100 MG TABLET (FP) PO SCH (21:32)
[2022-01-23] MEDS: ATORVASTATIN CA 10 MG TABLET (FP) PO SCH (21:32)
[2022-01-24] MEDS: TAMSULOSIN HCL 0.4 MG CAP PO SCH (09:51)
[2022-01-24] MEDS: PRENATAL VITAMINS W/ FOLIC ACID TABLET (FP) PO SCH (09:52)
[2022-01-24] MEDS: amLODIPine BESYLATE 10 MG TABLET (FP) PO SCH (09:52)
[2022-01-24] MEDS: NALTREXONE HCL 50 MG TABLET PO SCH (09:53)
[2022-01-24] MEDS: NICOTINE 7 MG/24 HOURS TOPICAL PATCH TD SCH (09:53)
[2022-01-24] MEDS: RIVAROXABAN 20 MG TABLET PO SCH (18:29)
[2022-01-24] MEDS: MELATONIN 5 MG TABLETS PO SCH (21:19)
[2022-01-24] MEDS: ATORVASTATIN CA 10 MG TABLET (FP) PO SCH (21:19)
[2022-01-24] MEDS: THIAMINE HCL 100 MG TABLET (FP) PO SCH (21:19)
[2022-01-25] MEDS: NICOTINE 7 MG/24 HOURS TOPICAL PATCH TD SCH (09:45)
[2022-01-25] MEDS: PRENATAL VITAMINS W/ FOLIC ACID TABLET (FP) PO SCH (09:45)
[2022-01-25] MEDS: TAMSULOSIN HCL 0.4 MG CAP PO SCH (09:46)
[2022-01-25] MEDS: NICOTINE 10 MG CARTRIDGE (INHALER) IH PRN (09:46)
[2022-01-25] MEDS: amLODIPine BESYLATE 10 MG TABLET (FP) PO SCH (09:46)
[2022-01-25] MEDS: NALTREXONE HCL 50 MG TABLET PO SCH (09:47)
[2022-01-25] MEDS: RIVAROXABAN 20 MG TABLET PO SCH (18:45)
[2022-01-25] MEDS: MELATONIN 5 MG TABLETS PO SCH (21:19)
[2022-01-25] MEDS: THIAMINE HCL 100 MG TABLET (FP) PO SCH (21:19)
[2022-01-25] MEDS: ATORVASTATIN CA 10 MG TABLET (FP) PO SCH (21:19)
[2022-01-26] MEDS: amLODIPine BESYLATE 10 MG TABLET (FP) PO SCH (09:36)
[2022-01-26] MEDS: NALTREXONE HCL 50 MG TABLET PO SCH (09:36)
[2022-01-26] MEDS: TAMSULOSIN HCL 0.4 MG CAP PO SCH (09:36)
[2022-01-26] MEDS: NICOTINE 7 MG/24 HOURS TOPICAL PATCH TD SCH (09:36)
[2022-01-26] MEDS: PRENATAL VITAMINS W/ FOLIC ACID TABLET (FP) PO SCH (09:36)
[2022-01-26] MEDS: NICOTINE 10 MG CARTRIDGE (INHALER) IH PRN (09:37)
[2022-01-26] MEDS: RIVAROXABAN 20 MG TABLET PO SCH (17:16)
[2022-01-26] MEDS: ATORVASTATIN CA 10 MG TABLET (FP) PO SCH (21:02)
[2022-01-26] MEDS: MELATONIN 5 MG TABLETS PO SCH (21:03)
[2022-01-26] MEDS: THIAMINE HCL 100 MG TABLET (FP) PO SCH (21:03)
[2022-01-27] MEDS: TAMSULOSIN HCL 0.4 MG CAP PO SCH (09:55)
[2022-01-27] MEDS: NALTREXONE HCL 50 MG TABLET PO SCH (09:56)
[2022-01-27] MEDS: amLODIPine BESYLATE 10 MG TABLET (FP) PO SCH (09:56)
[2022-01-27] MEDS: NICOTINE 10 MG CARTRIDGE (INHALER) IH PRN (09:56)
[2022-01-27] MEDS: PRENATAL VITAMINS W/ FOLIC ACID TABLET (FP) PO SCH (09:56)
[2022-01-27] MEDS: NICOTINE 7 MG/24 HOURS TOPICAL PATCH TD SCH (09:56)
[2022-01-27] MEDS: RIVAROXABAN 20 MG TABLET PO SCH (18:45)
[2022-01-27] MEDS: THIAMINE HCL 100 MG TABLET (FP) PO SCH (21:04)
[2022-01-27] MEDS: ATORVASTATIN CA 10 MG TABLET (FP) PO SCH (21:04)
[2022-01-27] MEDS: MELATONIN 5 MG TABLETS PO SCH (21:04)
[2022-01-28] MEDS: TAMSULOSIN HCL 0.4 MG CAP PO SCH (09:30)
[2022-01-28] MEDS: NALTREXONE HCL 50 MG TABLET PO SCH (09:50)
[2022-01-28] MEDS: PRENATAL VITAMINS W/ FOLIC ACID TABLET (FP) PO SCH (09:50)
[2022-01-28] MEDS: NICOTINE 7 MG/24 HOURS TOPICAL PATCH TD SCH (09:50)
[2022-01-28] MEDS: amLODIPine BESYLATE 10 MG TABLET (FP) PO SCH (09:50)
[2022-01-28] MEDS: NICOTINE 10 MG CARTRIDGE (INHALER) IH PRN (09:51)
[2022-01-28] MEDS: RIVAROXABAN 20 MG TABLET PO SCH (18:16)
[2022-01-28] MEDS: ATORVASTATIN CA 10 MG TABLET (FP) PO SCH (21:18)
[2022-01-28] MEDS: THIAMINE HCL 100 MG TABLET (FP) PO SCH (21:18)
[2022-01-28] MEDS: MELATONIN 5 MG TABLETS PO SCH (21:18)
[2022-01-29] MEDS: NICOTINE 7 MG/24 HOURS TOPICAL PATCH TD SCH (09:48)
[2022-01-29] MEDS: TAMSULOSIN HCL 0.4 MG CAP PO SCH (09:48)
[2022-01-29] MEDS: amLODIPine BESYLATE 10 MG TABLET (FP) PO SCH (09:48)
[2022-01-29] MEDS: PRENATAL VITAMINS W/ FOLIC ACID TABLET (FP) PO SCH (09:48)
[2022-01-29] MEDS: NALTREXONE HCL 50 MG TABLET PO SCH (09:49)
[2022-01-29] MEDS: NICOTINE 10 MG CARTRIDGE (INHALER) IH PRN (09:49)
[2022-01-29] MEDS: RIVAROXABAN 20 MG TABLET PO SCH (18:07)
[2022-01-29] MEDS: ATORVASTATIN CA 10 MG TABLET (FP) PO SCH (21:14)
[2022-01-29] MEDS: THIAMINE HCL 100 MG TABLET (FP) PO SCH (21:14)
[2022-01-29] MEDS: MELATONIN 5 MG TABLETS PO SCH (21:14)
[2022-01-30] MEDS: PRENATAL VITAMINS W/ FOLIC ACID TABLET (FP) PO SCH (09:46)
[2022-01-30] MEDS: NICOTINE 10 MG CARTRIDGE (INHALER) IH PRN (09:46)
[2022-01-30] MEDS: TAMSULOSIN HCL 0.4 MG CAP PO SCH (09:46)
[2022-01-30] MEDS: amLODIPine BESYLATE 10 MG TABLET (FP) PO SCH (09:46)
[2022-01-30] MEDS: NICOTINE 7 MG/24 HOURS TOPICAL PATCH TD SCH (09:47)
[2022-01-30] MEDS: NALTREXONE HCL 50 MG TABLET PO SCH (09:47)
[2022-01-30] MEDS: RIVAROXABAN 20 MG TABLET PO SCH (18:40)
[2022-01-30] MEDS: ATORVASTATIN CA 10 MG TABLET (FP) PO SCH (21:15)
[2022-01-30] MEDS: THIAMINE HCL 100 MG TABLET (FP) PO SCH (21:15)
[2022-01-30] MEDS: MELATONIN 5 MG TABLETS PO SCH (21:15)
[2022-01-31] MEDS: TAMSULOSIN HCL 0.4 MG CAP PO SCH (10:20)
[2022-01-31] MEDS: NICOTINE 10 MG CARTRIDGE (INHALER) IH PRN (10:20)
[2022-01-31] MEDS: PRENATAL VITAMINS W/ FOLIC ACID TABLET (FP) PO SCH (10:20)
[2022-01-31] MEDS: amLODIPine BESYLATE 10 MG TABLET (FP) PO SCH (10:20)
[2022-01-31] MEDS: NICOTINE 7 MG/24 HOURS TOPICAL PATCH TD SCH (10:21)
[2022-01-31] MEDS: RIVAROXABAN 20 MG TABLET PO SCH (17:44)
[2022-01-31] MEDS: MELATONIN 5 MG TABLETS PO SCH (21:26)
[2022-01-31] MEDS: ATORVASTATIN CA 10 MG TABLET (FP) PO SCH (21:26)
[2022-01-31] MEDS: THIAMINE HCL 100 MG TABLET (FP) PO SCH (21:26)
[2022-02-01] MEDS: TAMSULOSIN HCL 0.4 MG CAP PO SCH (10:22)
[2022-02-01] MEDS: amLODIPine BESYLATE 10 MG TABLET (FP) PO SCH (10:22)
[2022-02-01] MEDS: PRENATAL VITAMINS W/ FOLIC ACID TABLET (FP) PO SCH (10:22)
[2022-02-01] MEDS: NICOTINE 10 MG CARTRIDGE (INHALER) IH PRN (10:23)
[2022-02-01] MEDS: NICOTINE 7 MG/24 HOURS TOPICAL PATCH TD SCH (10:23)
[2022-02-01] MEDS: RIVAROXABAN 20 MG TABLET PO SCH (17:05)
[2022-02-01] MEDS: MELATONIN 5 MG TABLETS PO SCH (21:21)
[2022-02-01] MEDS: ATORVASTATIN CA 10 MG TABLET (FP) PO SCH (21:21)
[2022-02-01] MEDS: THIAMINE HCL 100 MG TABLET (FP) PO SCH (21:22)
[2022-02-02] MEDS: amLODIPine BESYLATE 10 MG TABLET (FP) PO SCH (10:00)
[2022-02-02] MEDS: NICOTINE 10 MG CARTRIDGE (INHALER) IH PRN (10:00)
[2022-02-02] MEDS: TAMSULOSIN HCL 0.4 MG CAP PO SCH (10:00)
[2022-02-02] MEDS: PRENATAL VITAMINS W/ FOLIC ACID TABLET (FP) PO SCH (10:00)
[2022-02-02] MEDS: NICOTINE 7 MG/24 HOURS TOPICAL PATCH TD SCH (10:01)
[2022-02-02] MEDS: RIVAROXABAN 20 MG TABLET PO SCH (18:04)
[2022-02-02 18:15] VITALS: RESP 18
[2022-02-02] MEDS: THIAMINE HCL 100 MG TABLET (FP) PO SCH (21:32)
[2022-02-02] MEDS: ATORVASTATIN CA 10 MG TABLET (FP) PO SCH (21:32)
[2022-02-02] MEDS: MELATONIN 5 MG TABLETS PO SCH (21:33)
[2022-02-03] MEDS: NICOTINE 10 MG CARTRIDGE (INHALER) IH PRN (10:48)
[2022-02-03] MEDS: PRENATAL VITAMINS W/ FOLIC ACID TABLET (FP) PO SCH (10:49)
[2022-02-03] MEDS: amLODIPine BESYLATE 10 MG TABLET (FP) PO SCH (10:49)
[2022-02-03] MEDS: NICOTINE 7 MG/24 HOURS TOPICAL PATCH TD SCH (10:49)
[2022-02-03] MEDS: TAMSULOSIN HCL 0.4 MG CAP PO SCH (12:52)
[2022-02-03] MEDS: RIVAROXABAN 20 MG TABLET PO SCH (18:40)
[2022-02-03] MEDS: ATORVASTATIN CA 10 MG TABLET (FP) PO SCH (21:23)
[2022-02-03] MEDS: MELATONIN 5 MG TABLETS PO SCH (21:23)
[2022-02-03] MEDS: THIAMINE HCL 100 MG TABLET (FP) PO SCH (21:23)
[2022-02-04 06:58] VITALS: BP 120/75; PULSE 79; TEMP 96.8
== END 2022-02-04 08:50 | disposition home or self-care (01) | DRG 772 ==
LOC: YASAS 12:16 → Y3W 12:17
PROVIDERS: ADMIT Allergy & Immunology; ATTEND Psychiatry & Neurology Pain Medicine
PROC: HZ42ZZZ Group Counseling for Substance Abuse Treatment, Cognitive-Behavioral (ICD-10-PCS; principal; 2022-01-14)
DX: F10.20 Alcohol dependence, uncomplicated (principal); F14.20 Cocaine dependence, uncomplicated; F17.210 Nicotine dependence, cigarettes, uncomplicated; F19.24 Other psychoactive substance dependence with psychoactive substance-induced mood disorder; I10 Essential (primary) hypertension; Z56.0 Unemployment, unspecified; Z59.00 Homelessness unspecified